=== PATIENT | female | born 1995 | race Caucasian/White ===

== ENCOUNTER 2020-11-21 13:20 | Emergency (ER) | payer OTHER ==
[~2020-11-21] VITALS: Ht 172 cm; Wt 86.1 kg
[2020-11-21 13:49] LABS: BILIRUBIN,URINE NEGATIVE (NEGATIVE); CLARITY,URINE CLEAR; COLOR,URINE YELLOW; GLUCOSE, URINE (UA) NEGATIVE (NEGATIVE); KETONES,URINE NEGATIVE (NEGATIVE); LEUKOCYTE ESTERASE ,URINE 2+ (NEGATIVE); NITRITE,URINE NEGATIVE (NEGATIVE); PH,URINE 5.5 (5-9); PROTEIN,URINE NEGATIVE (NEGATIVE)
[2020-11-21 13:58] LABS: BACTERIA,URINE LARGE /HPF; WBC,URINE 25-50 /HPF
[2020-11-21] MEDS ORDERED: KETOROLAC 30 MG/ML VIAL IVP ONE (14:00)
--- NOTE | 2020-11-21 14:02 | ED GU-Female ---
General Chief Complaint: Female Reproductive Stated Complaint: PEVLIC PAIN Nursing Triage Note: Patient ambulatory to ER with c/o right lower quadrant pelvic pain that started 1 month ago but worsened this morning when getting out of bed. Pt describes the pain as sharp and burning. She has had burning with urination today. Nursing Sepsis Screen: No Definite Risk Source: patient Exam Limitations: no limitations History of Present Illness Date Seen by Provider: Nov 21, 2020 Time Seen by Provider: 13:50 Initial Comments This is a healthy-appearing 24-year-old female who presents to the ER with complaints of right lower quadrant pain that extends into her left lower qu adrant. States pain has been present 1 month. However, when she woke this morning around 8 AM it was worse. Describes a sharp stabbing pain that is constant and worse with movement. Rates /. LMP 10/21/20. Allergies and Home Medications Allergies Coded Allergies: No Known Drug Allergies (Unverified , 11/21/20) Home Medications Doxycycline Hyclate 100 Mg Tablet, 100 MG PO BID Prescribed by: DIONE ISABEL on 11/21/20 1645 Patient Home Medication List Home Medication List Reviewed: Yes Review of Systems Review of Systems Constitutional: no symptoms reported EENTM: no symptoms reported Respiratory: no symptoms reported Cardiovascular: no symptoms reported Gastrointestinal: see HPI Genitourinary: burning, dysuria : No LMP: Nov 21, 2019 Musculoskeletal: no symptoms reported Skin: no symptoms reported Psychiatric/Neurological: No Symptoms Reported Endocrine: No Symptoms Reported Hematologic/Lymphatic: No Symptoms Reported Past Nsmwqyn-Khbdbm-Uyzmya Hx Patient Social History Alcohol Use: Denies Use Smoking Status: Never a Smoker 2nd Hand Smoke Exposure: No Recent Infectious Disease Expo: No Recent Hopitalizations: No Immunizations Up To Date Tetanus Booster (TDap): Less than 5yrs PED Vaccines UTD: Yes Seasonal Allergies Seasonal Allergies: No Past Medical History Surgeries: No Respiratory: No Cardiac: No Neurological: No : No Last Menstrual Period: Oct 21, 2020 Genitourinary: No Gastrointestinal: No Musculoskeletal: No Endocrine: No HEENT: No Cancer: No Psychosocial: No Integumentary: No Blood Disorders: No Physical Exam Vital Signs Vital Signs - First Documented 11/21/20 13:27 Temp 36.3 Pulse 94 Resp 16 B/P (MAP) 136/98 (111) Pulse Ox 98 O2 Delivery Room Air Capillary Refill : Less Than 3 Seconds Height, Weight, BMI Height: '" Weight: lbs. oz. kg; 29.00 BMI Method: General Appearance: WD/WN, no apparent distress HEENT: PERRL/EOMI, TMs normal, pharynx normal Neck: full range of motion, supple, normal inspection Cardiovascular: regular rate, rhythm, no murmur Respiratory: lungs clear, normal breath sounds Gastrointestinal: normal bowel sounds, soft, no pulsatile mass, rebound, tenderness (suprapubic tenderness ) Back: normal inspection, no CVA tenderness Extremities: normal range of motion, non-tender, normal inspection, normal capillary refill Neurologic/Psychiatric: no motor/sensory deficits, alert, normal mood/affect, oriented x 3 Skin: normal color, warm/dry Progress/Results/Core Measures Suspected Sepsis Recent Fever Within 48 Hours: No Infection Criteria Present: None New/Unexplained Altered Menta: No Sepsis Screen: No Definite Risk SIRS Temperature: Pulse: 94 Respiratory Rate: 16 Laboratory Tests 11/21/20 14:02: White Blood Count 11.4H Blood Pressure 136 /98 Mean: 111 Laboratory Tests 11/21/20 14:02: Creatinine 0.83, Platelet Count 320, Total Bilirubin 0.3 Results/Orders Lab Results Laboratory Tests Test 11/21/20 13:28 11/21/20 14:02 11/21/20 15:06 Range/Units Urine Color YELLOW Urine Clarity CLEAR Urine pH 5.5 5-9 Urine Specific [place] >=1.030 1.016-1.022 Urine Protein NEGATIVE NEGATIVE Urine Glucose (UA) NEGATIVE NEGATIVE Urine Ketones NEGATIVE NEGATIVE Urine Nitrite NEGATIVE NEGATIVE Urine Bilirubin NEGATIVE NEGATIVE Urine Urobilinogen 0.2 < = 1.0 MG/DL Urine Leukocyte Esterase 2+ H NEGATIVE Urine RBC (Auto) NEGATIVE NEGATIVE Urine RBC 2-5 H /HPF Urine WBC 25-50 H /HPF Urine Squamous Epithelial Cells 5-10 /HPF Urine Crystals NONE /LPF Urine Bacteria LARGE H /HPF Urine Casts NONE /LPF Urine Mucus NEGATIVE /LPF Urine Culture Indicated YES White Blood Count 11.4 H 4.3-11.0 10^3/uL Red Blood Count 4.27 3.80-5.11 10^6/uL Hemoglobin 12.5 11.5-16.0 g/dL Hematocrit 37 35-52 % Mean Corpuscular Volume 88 80-99 fL Mean Corpuscular Hemoglobin 29 25-34 pg Mean Corpuscular Hemoglobin Concent 33 32-36 g/dL Red Cell Distribution Width 12.1 10.0-14.5 % Platelet Count 320 130-400 10^3/uL Mean Platelet Volume 10.0 9.0-12.2 fL Immature Granulocyte % (Auto) 0 % Neutrophils (%) (Auto) 67 42-75 % Lymphocytes (%) (Auto) 27 12-44 % Monocytes (%) (Auto) 5 0-12 % Eosinophils (%) (Auto) 1 0-10 % Basophils (%) (Auto) 0 0-10 % Neutrophils # (Auto) 7.6 1.8-7.8 10^3/uL Lymphocytes # (Auto) 3.0 1.0-4.0 10^3/uL Monocytes # (Auto) 0.6 0.0-1.0 10^3/uL Eosinophils # (Auto) 0.1 0.0-0.3 10^3/uL Basophils # (Auto) 0.1 0.0-0.1 10^3/uL Immature Granulocyte # (Auto) 0.1 0.0-0.1 10^3/uL Sodium Level 137 135-145 MMOL/L Potassium Level 3.8 3.6-5.0 MMOL/L Chloride Level 104 98-107 MMOL/L Carbon Dioxide Level 22 21-32 MMOL/L Anion Gap 11 5-14 MMOL/L Blood Urea Nitrogen 18 7-18 MG/DL Creatinine 0.83 0.60-1.30 MG/DL Estimat Glomerular Filtration Rate > 60 BUN/Creatinine Ratio 22 Glucose Level 89 70-105 MG/DL Calcium Level 8.9 8.5-10.1 MG/DL Corrected Calcium 8.7 8.5-10.1 MG/DL Total Bilirubin 0.3 0.1-1.0 MG/DL Aspartate Amino Transf (AST/SGOT) 12 5-34 U/L Alanine Aminotransferase (ALT/SGPT) 15 0-55 U/L Alkaline Phosphatase 55 40-136 U/L Total Protein 7.5 6.4-8.2 GM/DL Albumin 4.3 3.2-4.5 GM/DL Chlamydia DNA Probe Not Detected Not Detected Neisseria gonorrhoeae DNA Probe Not Detected Not Detected Micro Results Microbiology 11/21/20 Genital Culture - Preliminary, Resulted 11/21/20 Urine Culture - Final, Complete Gram Pos Mixed Bacterial Cassandra My Orders Orders - DIONE ISABEL APRN Urine Bedside (11/21/20 13:43) Ua Culture If Indicated (11/21/20 13:43) Urine Culture (11/21/20 13:28) Cbc With Automated Diff (11/21/20 14:00) Comprehensive Metabolic Panel (11/21/20 14:00) Ct Abd/Pelv W (Appendicitis) (11/21/20 14:00) Ed Iv/Invasive Line Start (11/21/20 14:00) Ketorolac Injection (Toradol Injection) (11/21/20 14:00) Iohexol Injection (Omnipaque 350 Mg/Ml 1 (11/21/20 14:15) Received Contrast (Hold Metformin- Contr (11/21/20 14:15) Ns (Ivpb) (Sodium Chloride 0.9% Ivpb Bag (11/21/20 14:15) Neisseria Gonorrhea Swab (11/21/20 14:49) Genital Culture (11/21/20 14:49) Chlamydia Trachomatis Swab (11/21/20 14:49) Ceftriaxone For Iv Use (Rocephin For I (11/21/20 15:30) Us Non Ob Pelvis Comp/Transvag (11/21/20 14:47) Doxycycline Hyclate Tablet (Vibramycin T (11/21/20 16:45) Medications Given in ED Vital Signs/I&O Capillary Refill : Less Than 3 Seconds Blood Pressure Mean: 111 Progress Note : Progress Note Pt. examined and in no acute distress. Orders placed for appendicitis workup. Toradol 15mg IVP ordered for pain. Labs reviewed, slight elevation in WBC. UA is Leukocyte esterase pos, with p yruia. CT abd/pelvis is neg for acute appendicitis. There is free fluid in pelvis and right ovarian cyst, recommended US for further evaluation. Pelvic US ordered. Pelvic US Relatively small volume of pelvic free fluid sonographically with no evidence for complexity and a follicular cyst on right ovary. Neg for torsion. Reviewed all lab and radiology findings with her and discussed STI testing, she is agreeable to this. Treated with Rocephin 1gm IVP and Doxycycline. Discussed discharge POC and she is agreeable with plan. Diagnostic Imaging Diagonstic Imaging: CT Plain Films/CT/US/NM/MRI: abdomen, pelvis Comments NAME: [facility] REC#: [id number] PT STATUS: REG ER : 1995 PHYSICIAN: DIONE ISABEL APRN ADMIT DATE: 11/21/20/ER Signed Date of Exam:11/21/20 CT ABD/PELV W (APPENDICITIS) PROCEDURE: CT abdomen and pelvis with contrast, rule out appendicitis. TECHNIQUE: Multiple contiguous axial images were obtained through the abdomen and pelvis after the administration of intravenous contrast. All CT scans use one or more of the following dose optimizing techniques: automated exposure control, MA and/or KvP adjustment based on patient size and exam type or iterative reconstruction. INDICATION: Right lower quadrant pain. COMPARISON: None. While I am unable to identify the appendix itself in this patient there were no pericecal inflammatory changes to suggest nonvisualized acute appendicitis. This patient has a moderate volume of pelvic free fluid greater than typically encountered for simple physiologic reasons. The fluid itself is more dense than typically encountered in simple free fluid and may be blood. There is a right adnexal cyst measuring 2 cm which could conceivably reflect a ruptured hemorrhagic cyst accounting for the free fluid. No free fluid in the abdomen. The liver, gallbladder, bile ducts, spleen, adrenals and pancreas are unremarkable. The aorta is patent and nonaneurysmal. The urinary tracts are unobstructed nonfocal and nonacute. There is no pneumatosis or free air. IMPRESSION: 1. Pelvic free fluid more dense than typically seen suspicious for hemoperitoneum possible etiology of complex right adnexal cyst of 2 cm. 2. Nonidentification of the appendix but no findings suggestive of underlying appendicitis. Nonfocal unobstructed and nonacute urinary tracts. 3. Pelvic ultrasound suggested as further evaluation. Dictated by: Dictated on workstation # [id number] Dict: 11/21/20 1433 Trans: 11/21/20 1536 [facility] [id number] Interpreted by: HARRIS PEACE Electronically signed by: HARRIS PEACE 11/21/20 1536 Diagonstic Imaging: Ultrasound Plain Films/CT/US/NM/MRI: pelvis Comments NAME: [facility] REC#: [id number] PT STATUS: REG ER : 1995 PHYSICIAN: DIONE ISABEL ENVIRONMENTAL PROGRAM MANAGER ADMIT DATE: 11/21/20/ER Signed Date of Exam:11/21/20 US NON OB PELVIS COMP/TRANSVAG PROCEDURE: US Non-OB pelvis comp/trans. TECHNIQUE: Multiple realtime grayscale images were obtained of the pelvis in various projections, endovaginally. Transabdominal imaging was also performed. INDICATION: Pelvic pain. FINDINGS: The left ovary could not be visualized. The right ovary measures 4.6 x 2.2 x 2.6 cm and shows normal color Doppler blood flow. There is a small to moderate volume of pelvic free fluid but sonographically this shows no obvious complexity or mobile internal echoes. There is no fibroid or myometrial mass. The endometrium is unremarkable. IMPRESSION: Relatively small volume of pelvic free fluid sonographically showed no convincing evidence for complexity. There is follicular cyst in the right ovary but no obvious pathological cystic lesion. No adnexal torsion. The left ovary could not be identified but appeared unremarkable at earlier CT. Dictated by: Dictated on workstation # [id number] Dict: 11/21/20 1626 Trans: 11/21/20 1647 [facility] [id number] Interpreted by: HARRIS PEACE Electronically signed by: HARRIS PEACE 11/21/20 1647 Departure Impression Primary Impression: Urinary tract infection Additional Impression: Ovarian cyst Disposition: HOME, SELF-CARE Condition: Improved Departure-Patient Inst. Decision time for Depature: 16:43 Referrals: NO,LOCAL PHYSICIAN (PCP/Family) Primary Care Physician Patient Instructions: Urinary Tract Infection, Adult (DC) Add. Discharge Instructions: Plan: 1. Discharge home. Drink plenty of fluids 2. May take Tylenol or Ibuprofen as needed for pain per package instructions. 3. Follow up with your primary care provider if your symptoms persist. 4. Return for any new or concerning symptoms. 5. Take all of your antibiotics as directed and complete full course even if you begin to feel better. All discharge instructions reviewed with patient and/or family. Voiced understanding. Scripts Doxycycline Hyclate (Doxycycline Hyclate) 100 Mg Tablet 100 MG PO BID for 7 Days, #14 TAB 0 Refills Prov: DIONE ISABEL ENVIRONMENTAL PROGRAM MANAGER 11/21/20 DIONE ISABEL ENVIRONMENTAL PROGRAM MANAGER Nov 21, 2020 14:02
[2020-11-21 14:09] LABS: BASOPHILS # (AUTO) 0.1 10^3/uL (0.0-0.1); BASOPHILS % (AUTO) 0 % (0-10); EOSINOPHILS # (AUTO) 0.1 10^3/uL (0.0-0.3); EOSINOPHILS % (AUTO) 1 % (0-10); HEMATOCRIT 37 % (35-52); HEMOGLOBIN 12.5 g/dL (11.5-16.0); LYMPHOCYTES % (AUTO) 27 % (12-44); MEAN CORPUSCULAR HEMOGLOBIN 29 pg (25-34); MEAN CORPUSCULAR HGB CONC 33 g/dL (32-36); MEAN CORPUSCULAR VOLUME 88 fL (80-99); MONOCYTES # (AUTO) 0.6 10^3/uL (0.0-1.0); MONOCYTES % (AUTO) 5 % (0-12); NEUTROPHILS # (AUTO) 7.6 10^3/uL (1.8-7.8); NEUTROPHILS % (AUTO) 67 % (42-75); PLATELET COUNT 320 10^3/uL (130-400); WHITE BLOOD COUNT 11.4 10^3/uL (4.3-11.0)
[2020-11-21] MEDS ORDERED: HOLD METFORMIN - RECEIVED CONTRAST 20 ML VIAL IV SCH (14:15)
[2020-11-21] MEDS ORDERED: NS 100 ML (IVPB) BAG IV ONE (14:15)
[2020-11-21] MEDS ORDERED: IOHEXOL 350 MG/ML 100 ML (OMNIPAQUE 350) VIAL IV ONE (14:15)
[2020-11-21 14:32] LABS: ALANINE AMINOTRANSFERASE 15 U/L (0-55); ALBUMIN 4.3 GM/DL (3.2-4.5); ALKALINE PHOSPHATASE 55 U/L (40-136); BILIRUBIN,TOTAL 0.3 MG/DL (0.1-1.0); BUN/CREATININE RATIO 22; CALCIUM 8.9 MG/DL (8.5-10.1); CARBON DIOXIDE 22 MMOL/L (21-32); CHLORIDE 104 MMOL/L (98-107); CREATININE SERUM 0.83 MG/DL (0.60-1.30); GFR ESTIMATED > 60; GLUCOSE 89 MG/DL (70-105); POTASSIUM 3.8 MMOL/L (3.6-5.0); SODIUM 137 MMOL/L (135-145); TOTAL PROTEIN 7.5 GM/DL (6.4-8.2)
--- NOTE | 2020-11-21 14:41 | Diagnostic Imaging Report ---
PROCEDURE: CT abdomen and pelvis with contrast, rule out appendicitis. TECHNIQUE: Multiple contiguous axial images were obtained through the abdomen and pelvis after the administration of intravenous contrast. All CT scans use one or more of the following dose optimizing techniques: automated exposure control, MA and/or KvP adjustment based on patient size and exam type or iterative reconstruction. INDICATION: Right lower quadrant pain. COMPARISON: None. While I am unable to identify the appendix itself in this patient there were no pericecal inflammatory changes to suggest nonvisualized acute appendicitis. This patient has a moderate volume of pelvic free fluid greater than typically encountered for simple physiologic reasons. The fluid itself is more dense than typically encountered in simple free fluid and may be blood. There is a right adnexal cyst measuring 2 cm which could conceivably reflect a ruptured hemorrhagic cyst accounting for the free fluid. No free fluid in the abdomen. The liver, gallbladder, bile ducts, spleen, adrenals and pancreas are unremarkable. The aorta is patent and nonaneurysmal. The urinary tracts are unobstructed nonfocal and nonacute. There is no pneumatosis or free air. IMPRESSION: 1. Pelvic free fluid more dense than typically seen suspicious for hemoperitoneum possible etiology of complex right adnexal cyst of 2 cm. 2. Nonidentification of the appendix but no findings suggestive of underlying appendicitis. Nonfocal unobstructed and nonacute urinary tracts. 3. Pelvic ultrasound suggested as further evaluation. Dictated by: Dictated on workstation # [id number]
[2020-11-21] MEDS ORDERED: cefTRIAXone FOR IV USE 1,000 MG in WATER (STERILE) FOR INJECTION 10 ML IV ONE (15:30)
--- NOTE | 2020-11-21 16:37 | Diagnostic Imaging Report ---
PROCEDURE: US Non-OB pelvis comp/trans. TECHNIQUE: Multiple realtime grayscale images were obtained of the pelvis in various projections, endovaginally. Transabdominal imaging was also performed. INDICATION: Pelvic pain. FINDINGS: The left ovary could not be visualized. The right ovary measures 4.6 x 2.2 x 2.6 cm and shows normal color Doppler blood flow. There is a small to moderate volume of pelvic free fluid but sonographically this shows no obvious complexity or mobile internal echoes. There is no fibroid or myometrial mass. The endometrium is unremarkable. IMPRESSION: Relatively small volume of pelvic free fluid sonographically showed no convincing evidence for complexity. There is follicular cyst in the right ovary but no obvious pathological cystic lesion. No adnexal torsion. The left ovary could not be identified but appeared unremarkable at earlier CT. Dictated by: Dictated on workstation # [id number]
[2020-11-21] MEDS ORDERED: DOXYCYCLINE 100 MG (VIBRAMYCIN) TABLET PO ONE (16:45)
[2020-11-21] MEDS ORDERED: DOXY100T2 PO (16:45)
[2020-11-21 16:51] VITALS: BP 127/81
== END 2020-11-21 16:52 | disposition home or self-care (01) ==
LOC: ER 13:22
DX: N39.0 Urinary tract infection, site not specified (principal); N83.01 Follicular cyst of right ovary
CPT/HCPCS: 36415; 74177; 76830; 76856; 80053; 81000; 84703; 85025; 87070; 87088; 87205; 87491; 87591